=== PATIENT | male | born 1990 | race African-American/Black ===

== ENCOUNTER 2021-09-24 18:10 | Emergency (ER) | payer OTHER ==
[~2021-09-24] VITALS: Ht 193 cm; Wt 186.0 kg
[2021-09-24 21:52] VITALS: BP 138/71
== END 2021-09-24 22:44 | disposition home or self-care (01) ==
LOC: ER 18:12
DX: J06.9 Acute upper respiratory infection, unspecified (principal); J02.9 Acute pharyngitis, unspecified; R53.1 Weakness; Z20.822 Contact with and (suspected) exposure to COVID-19
CPT/HCPCS: 36415; 71046; 87426